=== PATIENT | female | born 1955 | race Caucasian/White ===

== ENCOUNTER 2022-02-15 21:26 | Inpatient (IN) | payer OTHER ==
[~2022-02-15] VITALS: Ht 162.6 cm; Wt 87.3 kg
[~2022-02-15 21:26] MED LIST: BUDE0.5S NEB; HYDR-531 PO; LORA-545 OR; ROPI0.5T16 PO
[2022-02-15 23:19] VITALS: BP 155/88
[2022-02-15] MEDS ORDERED: hydrALAZINE HCL 10 MG TAB PO PRN (23:45)
[2022-02-15] MEDS ORDERED: ACETAMINOPHEN 325 MG TAB PO PRN (23:45)
[2022-02-15] MEDS ORDERED: ONDANSETRON HCL 4 MG/2 ML VIAL IV PRN (23:45)
[2022-02-16] MEDS: SODIUM CHLORIDE 0.9% 1,000 ML IV SCH ×3 (01:27→19:30)
[2022-02-16 01:29] VITALS: BP 155/88
[2022-02-16] MEDS: HYDROcodone-ACET 5/325MG TAB PO PRN ×3 (02:12→20:23)
[2022-02-16] MEDS ORDERED: ALBU108A5 INH (02:30)
[2022-02-16] MEDS ORDERED: LOS25T PO (02:30)
[2022-02-16] MEDS ORDERED: HYDR-4072 (02:30)
[2022-02-16] MEDS ORDERED: SIMV-13 PO (02:30)
[2022-02-16] MEDS ORDERED: ROPI0.5T18 PO (02:30)
[2022-02-16] MEDS ORDERED: TIOT17SP INH (02:30)
[2022-02-16] MEDS ORDERED: DONE1TAB88 PO (02:30)
[2022-02-16] MEDS ORDERED: OXYB5TAB61 PO (02:30)
[2022-02-16] MEDS ORDERED: POTA-264 (02:30)
[2022-02-16] MEDS ORDERED: GABA-339 PO (02:30)
[2022-02-16] MEDS ORDERED: SUCR1TAB PO (02:30)
[2022-02-16 05:00] VITALS: BP 112/53
[2022-02-16 06:45] LABS: Basophils # (auto) 0.1 10 ^3/uL (0-0.2); Basophils % (auto) 0.8 % (0.0-2.0); Eosinophils # (auto) 0.5 10 ^3/uL (0-0.8); Eosinophils % (auto) 6.2 % (0.0-7.0); Hematocrit 48.3 % (36.0-46.0); Lymphocytes # (auto) 0.7 10 ^3/uL (0.4-5.4); Lymphocytes % (auto) 8.6 % (10.0-50.0); Mean Corpuscular Hemoglobin 31.7 pg (28.0-32.0); Mean Corpuscular Hgb Conc. 33.2 g/dL (32.0-36.0); Mean Corpuscular Volume 95.6 fL (80.0-100.0); Monocytes # (auto) 0.7 10 ^3/uL (0-1.3); Monocytes % (auto) 8.9 % (0.0-12.0); Neutrophils # (auto) 6.2 10 ^3/uL (1.6-8.6); Neutrophils % (auto) 75.5 % (37.0-80.0); Red Blood Cells 5.05 10^6/uL (4.0-5.20); Red Cell Distribution Width 14.7 % (11.8-14.3); White Blood Cell 8.2 10^3/uL (4.4-10.8)
[2022-02-16 07:00] LABS: BUN/Creatinine Ratio 22.4; Calcium 8.9 mg/dL (8.5-10.1); Potassium 5.1 mmol/L (3.5-5.1)
[2022-02-16 09:00] VITALS: BP 119/70
[2022-02-16 11:30] LABS: Folate (Folic Acid) 21.53 ng/mL (5.38-24)
[2022-02-16 13:00] VITALS: BP 120/65
[2022-02-16 15:35] LABS: BUN/Creatinine Ratio 23.7; Calcium 9.2 mg/dL (8.5-10.1); Potassium 5.5 mmol/L (3.5-5.1)
[2022-02-16] MEDS ORDERED: IPRATROPIUM BROM 0.5 MG/2.5ML INH SOL ONE (17:43)
[2022-02-16] MEDS ORDERED: ALBUTEROL SULF 2.5 MG/0.5ML(0.5%) NEB SOLN ONE (17:44)
[2022-02-16] MEDS ORDERED: ALBUTEROL SULF 2.5 MG/0.5ML(0.5%) NEB SOLN NEB ONE (18:00)
[2022-02-16] MEDS ORDERED: IPRATROPIUM BROM 0.5 MG/2.5ML INH SOL NEB ONE (18:00)
[2022-02-16] MEDS: methylPREDNISolone SOD SUCC 40 MG/ML VL IV SCH ×2 (20:22→23:33)
[2022-02-16 22:33] VITALS: BP 129/66
[2022-02-16 23:58] VITALS: BP 129/66
[2022-02-17] MEDS: ALBUTEROL SULF 2.5 MG/0.5ML(0.5%) NEB SOLN NEB SCH ×6 (00:37→17:56)
[2022-02-17] MEDS: IPRATROPIUM BROM 0.5 MG/2.5ML INH SOL NEB SCH ×5 (00:38→17:56)
[2022-02-17 05:00] VITALS: BP 150/78
[2022-02-17 06:00] LABS: Basophils # (auto) 0 10 ^3/uL (0-0.2); Basophils % (auto) 0.1 % (0.0-2.0); Eosinophils # (auto) 0 10 ^3/uL (0-0.8); Eosinophils % (auto) 0.1 % (0.0-7.0); Hematocrit 47.5 % (36.0-46.0); Hemoglobin 16.1 g/dL (12.2-16.2); Lymphocytes # (auto) 0.3 10 ^3/uL (0.4-5.4); Lymphocytes % (auto) 4.8 % (10.0-50.0); Mean Corpuscular Hemoglobin 32.3 pg (28.0-32.0); Mean Corpuscular Hgb Conc. 33.8 g/dL (32.0-36.0); Mean Corpuscular Volume 95.4 fL (80.0-100.0); Monocytes # (auto) 0 10 ^3/uL (0-1.3); Monocytes % (auto) 0.6 % (0.0-12.0); Neutrophils # (auto) 5.5 10 ^3/uL (1.6-8.6); Neutrophils % (auto) 94.4 % (37.0-80.0); Nucleated Red Blood Cells % 0.4 %; Red Blood Cells 4.98 10^6/uL (4.0-5.20); Red Cell Distribution Width 14.7 % (11.8-14.3); White Blood Cell 5.8 10^3/uL (4.4-10.8)
[2022-02-17 06:10] LABS: BUN/Creatinine Ratio 21.2; Calcium 9.4 mg/dL (8.5-10.1); Potassium 5.3 mmol/L (3.5-5.1)
[2022-02-17] MEDS: methylPREDNISolone SOD SUCC 40 MG/ML VL IV SCH ×2 (06:15→22:21)
[2022-02-17] MEDS: SODIUM CHLORIDE 0.9% 1,000 ML IV SCH (06:15)
[2022-02-17 09:00] VITALS: BP 170/84
[2022-02-17] MEDS: MORPHINE SULFATE INJ 2 MG/ml SYRG IV PRN ×2 (11:10)
[2022-02-17] MEDS ORDERED: SODIUM ZIRCONIUM CYCL 10 GM PAK PO ONE (13:15)
[2022-02-17] MEDS: amLODIPine BESYLATE 5 MG TAB PO SCH (13:17)
[2022-02-17] MEDS: HYDROcodone-ACET 5/325MG TAB PO PRN ×2 (13:27→18:52)
[2022-02-17 17:15] VITALS: BP 151/91
[2022-02-17] MEDS: HALOPERIDOL LACTATE 5 MG/ML INJ VIAL IM PRN (18:52)
[2022-02-17 22:17] VITALS: BP 154/106
[2022-02-17] MEDS ORDERED: LOSARTAN POTASSIUM 25 MG TAB PO ONE (23:30)
[2022-02-17] MEDS ORDERED: DONEPEZIL HYDROCHLORIDE 5 MG TAB PO ONE (23:45)
[2022-02-17] MEDS ORDERED: GABAPENTIN 300 MG CAP PO ONE (23:45)
[2022-02-17] MEDS ORDERED: traZODone HCL 50 MG TAB PO ONE (23:45)
[2022-02-18] MEDS: ALBUTEROL SULF 2.5 MG/0.5ML(0.5%) NEB SOLN NEB SCH ×5 (00:45→19:08)
[2022-02-18] MEDS: IPRATROPIUM BROM 0.5 MG/2.5ML INH SOL NEB SCH ×5 (00:46→19:08)
[2022-02-18] MEDS: MORPHINE SULFATE INJ 2 MG/ml SYRG IV PRN ×2 (00:51→14:54)
[2022-02-18] MEDS: HYDROcodone-ACET 5/325MG TAB PO PRN ×2 (03:06→21:57)
[2022-02-18] MEDS: HALOPERIDOL LACTATE 5 MG/ML INJ VIAL IM PRN (03:48)
[2022-02-18 05:42] VITALS: BP 154/88
[2022-02-18 06:30] LABS: BUN/Creatinine Ratio 27.6; Basophils # (auto) 0 10 ^3/uL (0-0.2); Basophils % (auto) 0.2 % (0.0-2.0); Calcium 9.8 mg/dL (8.5-10.1); Eosinophils # (auto) 0 10 ^3/uL (0-0.8); Hematocrit 48.7 % (36.0-46.0); Hemoglobin 16.8 g/dL (12.2-16.2); Lymphocytes # (auto) 0.4 10 ^3/uL (0.4-5.4); Lymphocytes % (auto) 3.5 % (10.0-50.0); Mean Corpuscular Hemoglobin 32.2 pg (28.0-32.0); Mean Corpuscular Hgb Conc. 34.5 g/dL (32.0-36.0); Mean Corpuscular Volume 93.3 fL (80.0-100.0); Monocytes # (auto) 0.3 10 ^3/uL (0-1.3); Monocytes % (auto) 2.4 % (0.0-12.0); Neutrophils # (auto) 11.8 10 ^3/uL (1.6-8.6); Neutrophils % (auto) 93.9 % (37.0-80.0); Potassium 4.3 mmol/L (3.5-5.1); Red Blood Cells 5.23 10^6/uL (4.0-5.20); Red Cell Distribution Width 14.6 % (11.8-14.3); White Blood Cell 12.5 10^3/uL (4.4-10.8)
[2022-02-18] MEDS: GABAPENTIN 300 MG CAP PO SCH ×3 (06:33→21:47)
[2022-02-18 06:38] LABS: INR 1.01 (0.9-1.15); Partial Thromboplastin Time 29.9 sec (23.6-33.0)
[2022-02-18] MEDS: ROPINIROLE 0.5MG TABLET PO SCH ×3 (07:00→21:57)
[2022-02-18 09:00] VITALS: BP 114/91
[2022-02-18] MEDS: amLODIPine BESYLATE 5 MG TAB PO SCH (09:57)
[2022-02-18] MEDS: methylPREDNISolone SOD SUCC 40 MG/ML VL IV SCH ×2 (10:00→21:55)
[2022-02-18] MEDS ORDERED: DULoxetine HCL 30 MG CAP PO SCH (10:00)
[2022-02-18] MEDS ORDERED: FUROSEMIDE 40 MG/4 ML VIAL IV SCH (10:00)
[2022-02-18] MEDS: LOSARTAN POTASSIUM 25 MG TAB PO SCH ×2 (10:01→21:57)
[2022-02-18 12:42] VITALS: BP 158/101
[2022-02-18] MEDS ORDERED: BUDE0.253 IN (14:44)
[2022-02-18] MEDS ORDERED: AZIT500T66 PO (14:44)
[2022-02-18 15:22] VITALS: BP 158/93
[2022-02-18 18:07] VITALS: BP 114/91
[2022-02-18] MEDS ORDERED: traZODone HCL 50 MG TAB PO SCH (22:00)
[2022-02-18] MEDS ORDERED: ATORVASTATIN 20 MG TAB PO SCH (22:00)
[2022-02-18] MEDS ORDERED: DONEPEZIL HYDROCHLORIDE 5 MG TAB PO SCH (22:00)
== END 2022-02-18 22:20 | disposition home or self-care (01) | DRG 189 ==
LOC: TELE-CENTR 22:20
PROVIDERS: ADMIT Nurse Practitioner Family; ATTEND Nurse Practitioner Family
DX: J96.01 Acute respiratory failure with hypoxia (principal); G93.41 Metabolic encephalopathy; J44.1 Chronic obstructive pulmonary disease with (acute) exacerbation; I13.0 Hypertensive heart and chronic kidney disease with heart failure and stage 1 through stage 4 chronic kidney disease, or unspecified chronic kidney disease; N17.9 Acute kidney failure, unspecified; G93.1 Anoxic brain damage, not elsewhere classified; I69.359 Hemiplegia and hemiparesis following cerebral infarction affecting unspecified side; S01.81XA Laceration without foreign body of other part of head, initial encounter; F07.81 Postconcussional syndrome; F17.200 Nicotine dependence, unspecified, uncomplicated; H54.8 Legal blindness, as defined in USA; E87.5 Hyperkalemia; F03.90 Unspecified dementia, unspecified severity, without behavioral disturbance, psychotic disturbance, mood disturbance, and anxiety; I50.9 Heart failure, unspecified; I70.90 Unspecified atherosclerosis; W01.0XXA Fall on same level from slipping, tripping and stumbling without subsequent striking against object, initial encounter; N18.32 Chronic kidney disease, stage 3b; Z80.8 Family history of malignant neoplasm of other organs or systems; Z82.49 Family history of ischemic heart disease and other diseases of the circulatory system; Z82.5 Family history of asthma and other chronic lower respiratory diseases; Z85.528 Personal history of other malignant neoplasm of kidney; Z90.5 Acquired absence of kidney; Z90.710 Acquired absence of both cervix and uterus; Y92.098 Other place in other non-institutional residence as the place of occurrence of the external cause; Y93.89 Activity, other specified; Y99.8 Other external cause status; Z88.8 Allergy status to other drugs, medicaments and biological substances
CPT/HCPCS: 36415; 36600; 70450; 70551; 71045; 71250; 76536; 76775; 80048; 82140; 82607; 82746; 82805; 84100; 84443; 85025; 85379; 85610; 85730; 87081; 93970; 94640; G0378

== ENCOUNTER 2022-09-13 06:09 | Emergency (ER) | payer OTHER ==
[~2022-09-13] VITALS: Ht 167.6 cm; Wt 90.9 kg
[~2022-09-13 06:09] MED LIST changes: +ALBU108A5 INH; +AZIT500T66 PO; +BUDE0.253 IN; +DONE1TAB88 PO; +GABA-339 PO; +HYDR-4072; +LOS25T PO; +OXYB5TAB61 PO; +POTA-264; +ROPI0.5T18 PO; +SIMV-13 PO; +SUCR1TAB PO; +TIOT17SP INH
[2022-09-13] MEDS ORDERED: SODIUM CHLORIDE 0.9% 1,000 ML IV ONE (06:30)
[2022-09-13 06:53] LABS: Basophils # (auto) 0.1 10 ^3/uL (0-0.2); Basophils % (auto) 0.6 % (0.0-2.0); Eosinophils # (auto) 0.3 10 ^3/uL (0-0.8); Eosinophils % (auto) 3.2 % (0.0-7.0); Hematocrit 49.7 % (36.0-46.0); Hemoglobin 16.6 g/dL (12.2-16.2); Lymphocytes # (auto) 0.9 10 ^3/uL (0.4-5.4); Mean Corpuscular Hemoglobin 30.6 pg (28.0-32.0); Mean Corpuscular Hgb Conc. 33.4 g/dL (32.0-36.0); Mean Corpuscular Volume 91.7 fL (80.0-100.0); Monocytes # (auto) 0.8 10 ^3/uL (0-1.3); Monocytes % (auto) 7.9 % (0.0-12.0); Neutrophils % (auto) 79.3 % (37.0-80.0); Red Blood Cells 5.42 10^6/uL (4.0-5.20); White Blood Cell 10.1 10^3/uL (4.4-10.8)
[2022-09-13 07:16] LABS: Albumin 3.6 g/dL (3.4-5.0); Bilirubin, Total 0.8 mg/dL (0.2-1.0); Calcium 10.2 mg/dL (8.5-10.1); Potassium 4.4 mmol/L (3.5-5.1); Total Protein 7.8 g/dL (6.4-8.2)
[2022-09-13] MEDS ORDERED: IOHEXOL 300 MG/ML 100ML BOTTLE IJ ONE (07:59)
[2022-09-13] MEDS ORDERED: CEPH-322 PO (18:16)
[2022-09-13 20:06] VITALS: BP 167/99
== END 2022-09-14 06:07 | disposition home or self-care (01) ==
LOC: ER 06:09 → EDBD 06:09 → ER 09-14 06:07
DX: N39.0 Urinary tract infection, site not specified (principal); K21.9 Gastro-esophageal reflux disease without esophagitis; E78.5 Hyperlipidemia, unspecified; R51.9 Headache, unspecified; Z90.710 Acquired absence of both cervix and uterus; Z87.891 Personal history of nicotine dependence; Z86.73 Personal history of transient ischemic attack (TIA), and cerebral infarction without residual deficits; Z88.8 Allergy status to other drugs, medicaments and biological substances
CPT/HCPCS: 36415; 70450; 71045; 74177; 80053; 83605; 83690; 84484; 85025; 93005; 96360; 96361; 99285; J7030; Q9967